=== PATIENT | female | born 1990 | race African-American/Black ===

== ENCOUNTER 2016-04-27 08:28 | Emergency (ER) | payer SELFPAY ==
[2016-04-27 08:49] VITALS: BP 128/86
--- NOTE | 2016-04-27 09:47 | RAD ---
HISTORY: Subacute trauma, right foot pain COMPARISONS: None VIEWS: 3, Frontal, lateral, and oblique views of the right foot FINDINGS: BONE DENSITY: Normal. BONES: There is fragmentation along the dorsal aspect of the navicular bone at the talonavicular articulation JOINTS: There is no arthropathy. ALIGNMENT: There is no dislocation. SOFT TISSUES: Unremarkable. OTHER FINDINGS: None. IMPRESSION: FRAGMENTATION OF THE NAVICULAR BONE AT THE TALONAVICULAR ARTICULATION DORSALLY WHICH MAY REFLECT A SUBACUTE AVULSION INJURY. RECOMMEND CORRELATION WITH SITE OF PAIN
--- NOTE | 2016-04-27 10:37 | UC ---
Lower Extremity/Ankle HPI - HPI Summary HPI Summary: ONE MONTH AGO FELL (AFTER PASSING OUT: CURRENTLY BEING WORKED UP BY PCP FOR SYNCOPAL EPISODE)AND TWISTED RIGHT FOOT/ANKLE. SINCE THE TIME OF INJURY RIGHT FOOT CONTINUES TO HURT AT TOP OF FOOT. - History of Current Complaint Chief Complaint: UCLowerExtremity Stated Complaint: FOOT INJURY Time Seen by Provider: 04/27/16 09:15 Hx Obtained From: Patient Hx Last Menstrual Period: 04/25/16 Onset/Duration: Sudden Onset, Lasting Days, Still Present Severity Initially: Mild Severity Currently: Mild Aggravating Factor(s): Standing, Ambulation, Other Alleviating Factor(s): Rest, Elevation Able to Bear Weight: Yes - Risk Factors Gout Risk Factors: Negative DVT Risk Factors: Negative Septic Arthritis Risk Factor: Negative - Allergies/Home Medications Allergies/Adverse Reactions: Allergies Allergy/AdvReac Type Severity Reaction Status Date / Time No Known Allergies Allergy Verified 04/27/16 08:50 PMH/Surg Hx/FS Hx/Imm Hx Previously Healthy: Yes Endocrine History Of: Denies: Diabetes, Thyroid Disease Cardiovascular History Of: Denies: Cardiac Disorders, Hypertension Respiratory History Of: Reports: Asthma - seasonal Denies: COPD GI/ History Of: Denies: Ulcer - Surgical History Surgical History: None - Family History Known Family History: Positive: None Negative: Cardiac Disease, Respiratory Disease, Other - JOINT LAXITY - Social History Occupation: Employed Full-time Lives: With Family Alcohol Use: Occasionally Substance Use Type: None Smoking Status (MU): Light Every Day Tobacco Smoker Type: Cigarettes Amount Used/How Often: 1/4 ppd Cessation Counseling: Patient Advised to Stop Review of Systems Constitutional: Negative Skin: Negative Eyes: Negative ENT: Negative Respiratory: Negative Cardiovascular: Negative Gastrointestinal: Negative Genitourinary: Negative Motor: Negative Neurovascular: Negative Musculoskeletal: Arthralgia, Myalgia Neurological: Negative Psychological: Negative All Other Systems Reviewed And Are Negative: Yes Physical Exam Triage Information Reviewed: Yes Appearance: Well-Appearing, No Pain Distress, Well-Nourished Vital Signs: Initial Vital Signs Temp 97.7 F 04/27/16 08:45 Pulse 78 04/27/16 08:45 Resp 20 04/27/16 08:45 BP 128/86 04/27/16 08:45 Pulse Ox 100 04/27/16 08:45 Vital Signs Reviewed: Yes Eye Exam: Normal ENT Exam: Normal ENT: Positive: Normal ENT inspection, Hearing grossly normal, Pharynx normal, TMs normal Dental Exam: Normal Neck exam: Normal Respiratory Exam: Normal Respiratory: Positive: Chest non-tender, Lungs clear, Normal breath sounds, No respiratory distress, No accessory muscle use Cardiovascular Exam: Normal Cardiovascular: Positive: RRR, No Murmur Abdominal Exam: Normal Abdomen Description: Positive: Nontender, No Organomegaly Musculoskeletal: Positive: Strength Intact, ROM Intact, Edema @ - RIGHT FOOT Neurological Exam: Normal Psychological Exam: Normal Skin Exam: Normal Lower Extremity Course/Dx - Differential Dx/Diagnosis Differential Diagnosis/HQI/PQRI: Sprain, Strain Provider Diagnoses: RIGHT NAVICULAR AVULSION FRACTURE. RIGHT FOOT SPRAIN Discharge - Discharge Plan Condition: Stable Disposition: HOME Patient Education Materials: Foot Sprain (ED), Avulsion Fracture (ED) Forms: *Work Release Referrals: Jesus Hernandez MD [Primary Care Provider] - Dante Bonilla MD [Medical Doctor] -
== END 2016-04-27 10:33 | disposition home or self-care (01) ==
LOC: UCEAST 08:28
DX: S92.251A Displaced fracture of navicular [scaphoid] of right foot, initial encounter for closed fracture (principal); S93.601A Unspecified sprain of right foot, initial encounter; X50.1XXA Overexertion from prolonged static or awkward postures, initial encounter; Y93.9 Activity, unspecified; Y92.9 Unspecified place or not applicable; F17.210 Nicotine dependence, cigarettes, uncomplicated
CPT/HCPCS: 99213; G0463

== ENCOUNTER 2017-10-11 16:45 | Emergency (ER) | payer BC ==
[2017-10-11 16:53] VITALS: BP 144/63
--- NOTE | 2017-10-11 17:11 | UC ---
Dizzy HPI HPI Summary: This patient is a 26 year old F presenting to [facility] [place] with a chief complaint of intermittent dizziness episodes since 10-09-17. The patient rates the pain 0/10 in severity. Pt took a nap that day and felt well enough to go to work. Patient reports nausea with dizziness. . Patient denies vomiting, ear pain, sinus pain, sore throat, dysuria, CP, SOB, and diarrhea. Pt does have some nasal congestion. Pt states sx worse with movement of head. No cp, sob, abd pain. Pt denies fevers, chills rash. 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 No symptoms at time of present. h/o vasovagal syncope - this feels different. LNMP was two weeks ago - "possible" Patients medication reviewed this visit. - History Of Current Complaint Chief Complaint: UCDizziness Stated Complaint: DIZZINESS Time Seen by Provider: 10/11/17 16:51 Hx Obtained From: Patient Hx Last Menstrual Period: 2 WEEKS AGO Onset/Duration: Still Present Timing: Intermittent Episode Lasting Severity Initially: Mild Severity Currently: None Pain Intensity: 0 Pain Scale Used: 0-10 Numeric Character: Dizzy Associated Signs And Symptoms: Positive: Negative - vomiting, ear pain sinus pain, sore throat, dysuria, diarrhea, - Allergies/Home Medications Allergies/Adverse Reactions: Allergies Allergy/AdvReac Type Severity Reaction Status Date / Time No Known Allergies Allergy Verified 04/27/16 08:50 PMH/Surg Hx/FS Hx/Imm Hx Previously Healthy: Yes Other History Of: Negative For: HIV, Anticoagulant Therapy - Surgical History Surgical History: None - Family History Known Family History: Positive: Cardiac Disease, Hypertension, Diabetes Negative: Respiratory Disease, Other - JOINT LAXITY - Social History Occupation: Employed Full-time Alcohol Use: Occasionally Substance Use Type: None Smoking Status (MU): Light Every Day Tobacco Smoker Type: Cigarettes Amount Used/How Often: 1/4 ppd Review of Systems Constitutional: Negative ENT: Other - nasal congestion Gastrointestinal: Nausea Neurological: Other - dizziness All Other Systems Reviewed And Are Negative: Yes Physical Exam - Summary Physical Exam Summary: Vital Signs Reviewed: Yes A+Ox3, no distress Eyes: Conjunctiva Clear, TATE. EOM intact and full + 4-5 beat horizontal nystagmus to the left pt with symptoms. no nystagmus to right or vertical ENT: Hearing grossly normal TM x 2 clear, turbinates inflammed and boggy mmoist , uvula midline, no exudate, no erythema Neck: Positive: Supple no bruits Respiratory: Positive: No respiratory distress, No accessory muscle use + CTA throughout no w/r Cardiovascular: RRR nl s1, s2 no m/r CBT <2 sec abd soft + BS nt/nd no guarding, no distension Musculoskeletal Exam: TAVERA x 4 without difficulty Strength Intact, ROM Intact Neurological: Positive: Alert, no difficulty with balance, ambulation Psychological: Positive: Normal Response To Family Skin: Positive: no rash, no ecchymosis Triage Information Reviewed: Yes Vital Signs: Initial Vital Signs Temp 97.4 F 10/11/17 16:48 Pulse 94 10/11/17 16:48 Resp 18 10/11/17 16:48 BP 144/63 10/11/17 16:48 Pulse Ox 100 10/11/17 16:48 Dizzy Course/Dx - Course Course Of Treatment: Blood pressure noted and patient informed to follow up with PCP. Patient presents with episodic episodes total of 3 since yesterday where she feels dizzy. Patient reports mild nausea with these episodes of dizziness. Patient is not having symptoms right now. On exam patient has extinguishing horizontal nystagmus to the left. Patient symptomatically this. Patient also goes to have some nasal congestion. Patient without any other findings on exam. Patient urine test negative. Discussed with patient symptoms. We'll prescribe meclizine, Flonase and recommended decongestant. Hydrate. Decreased significant. Patient given a work note for tonight. Recommend patient schedule follow-up with primary care provider. Discussed with patient return precautions. Patient comfortable in agreement with plan. - Differential Dx/Diagnosis Provider Diagnoses: vertigo. nausea Discharge - Sign-Out/Discharge Documenting (check all that apply): Patient Departure - Discharge Plan Condition: Stable Disposition: HOME Prescriptions: Fluticasone NASAL SPRAY 50MCG* [Flonase NASAL SPRAY 50MCG*] 2 spray BOTH NARES DAILY #1 btl Meclizine TAB* [Antivert 12.5 TAB*] 25 mg PO Q8HR PRN #15 tab PRN Reason: Dizziness Patient Education Materials: Vertigo (ED) Forms: *Work Release Referrals: Jesus Hernandez MD [Primary Care Provider] - Additional Instructions: - Stay well-hydrated. Drink plenty of nonalcoholic, non-caffeinated beverages - Get plenty of restful sleep - Use nasal spray as well as [id number] decongestant such as ClaritinD, Margoth-D, Zyrtec-D, or Sudafed to help with congestion - Okay to take medications prescribed for dizziness. - Work to decrease cigarettes smoke. - If you developed increased dizziness, chest pain, shortness of breath or any other concerns it is recommended you be re-evaluated. - slowly change position, lying to sitting, sitting to standing - Contact her doctor to schedule follow-up appointment this week. - Billing Disposition and Condition Condition: STABLE Disposition: Home Attestation Statement Scribe Attestation: This is alexa Dunn documenting for attending Mulu Bowers MD. User Type: Provider with Scribe Provider Attestation: The documentation recorded by the scribe accurately reflects the service I personally performed and the decisions made by me.
== END 2017-10-11 17:38 | disposition home or self-care (01) ==
LOC: UCEAST 16:45
DX: R42 Dizziness and giddiness (principal); R11.0 Nausea; F17.210 Nicotine dependence, cigarettes, uncomplicated
CPT/HCPCS: 81003; 84702; 99212; G0463

== ENCOUNTER 2018-12-29 13:32 | Emergency (ER) | payer SELFPAY ==
[2018-12-29 13:58] VITALS: BP 136/86
--- NOTE | 2018-12-29 14:05 | UC ---
Throat Pain/Nasal [place] HPI - HPI Summary HPI Summary: Pt presents with c/o with c/o "laryngitis" X 1 week. pt states that she has had URI like symptoms that began 7 days ago. Pt denies pever, chills. Pt has c/o PND and cough. - History of Current Complaint Chief Complaint: UCGeneralIllness Stated Complaint: COUGH NO VOICE Time Seen by Provider: 12/29/18 13:57 Hx Obtained From: Patient Hx Last Menstrual Period: 12/12/18 ?: No Onset/Duration: Sudden Onset, Lasting Days, Still Present Severity: Moderate Pain Intensity: 3 Cough: Nonproductive Associated Signs & Symptoms: Positive: Hoarseness, Nasal Discharge - Epiglottits Risk Factors Epiglottis Risk Factors: Negative - Allergies/Home Medications Allergies/Adverse Reactions: Allergies Allergy/AdvReac Type Severity Reaction Status Date / Time No Known Allergies Allergy Verified 12/29/18 13:58 PMH/Surg Hx/FS Hx/Imm Hx Previously Healthy: Yes Other History Of: Negative For: HIV, Anticoagulant Therapy - Surgical History Surgical History: None Surgery Procedure, Year, and Place: denies - Family History Known Family History: Positive: Cardiac Disease, Hypertension, Diabetes Negative: Respiratory Disease, Other - JOINT LAXITY - Social History Occupation: Employed Full-time Lives: With Family Alcohol Use: Occasionally Substance Use Type: None Smoking Status (MU): Light Every Day Tobacco Smoker Type: Cigarettes Amount Used/How Often: 1/4 ppd Have You Smoked in the Last Year: Yes Review of Systems All Other Systems Reviewed And Are Negative: Yes Constitutional: Positive: Negative Skin: Positive: Negative Eyes: Positive: Negative ENT: Positive: Sore Throat, Sinus Congestion Respiratory: Positive: Cough Cardiovascular: Positive: Negative Gastrointestinal: Positive: Negative Genitourinary: Positive: Negative Motor: Positive: Negative Neurovascular: Positive: Negative Musculoskeletal: Positive: Negative Neurological: Positive: Negative Psychological: Positive: Negative Is Patient Immunocompromised?: No Physical Exam Triage Information Reviewed: Yes Appearance: Well-Appearing Vital Signs: Initial Vital Signs Temp 98.1 F 12/29/18 13:55 Pulse 84 12/29/18 13:55 Resp 16 12/29/18 13:55 BP 136/86 12/29/18 13:55 Pulse Ox 98 12/29/18 13:55 Vital Signs Reviewed: Yes Eye Exam: Normal ENT: Positive: Nasal congestion, Hoarse voice Dental Exam: Normal Neck exam: Normal Respiratory: Positive: Normal breath sounds Cardiovascular Exam: Normal Musculoskeletal Exam: Normal Neurological Exam: Normal Psychological Exam: Normal Skin Exam: Normal Throat Pain/Nasal Course/Dx - Differential Dx/Diagnosis Differential Diagnosis/HQI/PQRI: Influenza, Pharyngitis, Tonsillitis, URI Provider Diagnosis: Laryngitis, Viral syndrome Discharge ED - Sign-Out/Discharge Documenting (check all that apply): Patient Departure All imaging exams completed and their final reports reviewed: No Studies - Discharge Plan Condition: Stable Disposition: HOME Prescriptions: Benzonatate CAP* [Tessalon 100 MG CAP*] 200 mg PO Q8H PRN #30 cap PRN Reason: Cough Guaifenesin/Pseudoephedrne HCl [Mucinex D ER 600-60 mg Tablet] 1 each PO Q12H # 10 tab.er.12h predniSONE TAB* [Deltasone 10 MG TAB*] 30 mg PO DAILY #12 tab Patient Education Materials: Laryngitis (ED) Forms: *Work Release Referrals: Jesus Hernandez MD [Primary Care Provider] - If Needed - Billing Disposition and Condition Condition: STABLE Disposition: Home
== END 2018-12-29 14:16 | disposition home or self-care (01) ==
LOC: UCEAST 13:32
DX: J04.0 Acute laryngitis (principal); B34.9 Viral infection, unspecified; R09.81 Nasal congestion; F17.210 Nicotine dependence, cigarettes, uncomplicated
CPT/HCPCS: 99212; G0463

== ENCOUNTER 2019-05-15 08:36 | Emergency (ER) | payer BC ==
[2019-05-15 08:52] VITALS: BP 135/95
--- NOTE | 2019-05-15 08:52 | UC ---
Knee Pain HPI - HPI Summary HPI Summary: 20-year-old woman comes in with chief complaint of left knee pain. 2 days ago she slipped and fell on the ice and injured her left knee. Is not sure if it was a direct strike on the ground or if the twisting cause the pain. Worst pain is in the anterior lateral aspect of the knee. No clicking or popping. Pain is worse with weightbearing and flexion extension. She has been taking ibuprofen which does help with the pain. Occasionally the knee feels unstable. - History of Current Complaint Stated Complaint: KNEE PAIN Time Seen by Provider: 05/15/19 08:42 Hx Last Menstrual Period: 12/12/18 - Allergies/Home Medications Allergies/Adverse Reactions: Allergies Allergy/AdvReac Type Severity Reaction Status Date / Time No Known Allergies Allergy Verified 05/15/19 08:54 Home Medications: Home Medications Albuterol HFA INHALER* [Ventolin HFA Inhaler*] 2 puff INH Q4H PRN 05/15/19 [ History Confirmed 05/15/19] Ibuprofen TAB* [Advil TAB*] 200 mg PO Q6H PRN 05/15/19 [History Confirmed ] PMH/Surg Hx/FS Hx/Imm Hx Previously Healthy: Yes Other History Of: Negative For: HIV, Anticoagulant Therapy - Surgical History Surgical History: None Surgery Procedure, Year, and Place: denies - Family History Known Family History: Positive: Cardiac Disease, Hypertension, Diabetes Negative: Respiratory Disease, Other - JOINT LAXITY - Social History Alcohol Use: Occasionally Substance Use Type: None Smoking Status (MU): Light Every Day Tobacco Smoker Type: Cigarettes Amount Used/How Often: 1/4 ppd Have You Smoked in the Last Year: Yes Review of Systems All Other Systems Reviewed And Are Negative: Yes Constitutional: Positive: Negative Skin: Positive: Negative Eyes: Positive: Negative ENT: Positive: Negative Respiratory: Positive: Negative Cardiovascular: Positive: Negative Gastrointestinal: Positive: Negative Motor: Positive: Negative Neurovascular: Positive: Negative Musculoskeletal: Positive: Other: - see hpi Neurological/Mental Status: Positive: Negative Psychological: Positive: Negative Is Patient Immunocompromised?: No Physical Exam Triage Information Reviewed: Yes Appearance: Well-Appearing, No Pain Distress, Well-Nourished Vital Signs Reviewed: Yes Eye Exam: Normal Eyes: Positive: Conjunctiva Clear Neck: Positive: Supple Respiratory: Positive: No respiratory distress Musculoskeletal: Positive: Other: - Left knee is tender to palpation in the anterior aspect just distal to the patella over the patella tibial tendon and the proximal tibia. Minimal tenderness on the lateral aspect of the knee. Positive lateral Gilberto's. Negative medial Gilberto's. Stable to exam. Neurological: Positive: Alert Psychological: Positive: Age Appropriate Behavior Skin Exam: Normal Knee Pain Course/Dx - Course Course Of Treatment: Optical Manufacturing Technician: Huong Cameron S, ([id number]) Bilingual Teacher Aide: VASILIY (VASILIY) Report Date: 05/15/2019 09:20:00 Report Status: Final Start of Report Content Patient Name: CHUCK TRINIDAD Medical Record#: [id number] Ordering Physician: Avelino Gallegos MD Acct.#: [id number] : Age: 28 Sex: F Location: [facility] Exam Date: 05/15/19846 ADM Status: REG ER Order Information: KNEE LEFT 4+ VWS Accession Number: [id number] CPT: 69588 Indication: Left knee pain. 4 views of the left knee demonstrates no fracture or dislocation. No other bone or joint abnormality is identified. IMPRESSION: No fracture of the left knee is noted. No joint effusion is noted. <Electronically signed by Huong Cameron MD in OV> 05/15/19914 Dictated By: Huong Cameron MD Dictated Date/Time: 05/15/19907 Transcribed Date/Time: 05/15/19907 Copy to: CC:Jesus Hernandez MD; Avelino Gallegos MD Imaging - [facility] Care Imaging - [facility] [address] [address] ph [phone]) ph ([phone]) ph ([phone]) End of Report Content I discussed the knee x-rays with the patient. Rodolfo wrap was placed by nursing here in clinic patient and her vascular intact after placement of the Rodolfo wrap. Patient will to weightbearing as tolerated. Patient reports she has Crutches at home that she will use if necessary. Going to ice it and use anti- inflammatories and follow-up with sports medicine orthopedics. - Differential Dx/Diagnosis Provider Diagnosis: Left knee pain Discharge ED - Sign-Out/Discharge Documenting (check all that apply): Patient Departure All imaging exams completed and their final reports reviewed: Yes - Discharge Plan Condition: Stable Disposition: HOME Patient Education Materials: Knee Pain (ED) Forms: *Work Release Referrals: Jesus Hernandez MD [Primary Care Provider] - Additional Instructions: FOLLOW UP WITH SPORTS MEDICINE OR ORTHOPEDICS. GET REEVALUATED SOONER IF NOT IMPROVED OR WORSE OR ANY QUESTIONS OR CONCERNS. - Billing Disposition and Condition Condition: STABLE Disposition: Home
== END 2019-05-15 09:44 | disposition home or self-care (01) ==
LOC: UCEAST 08:36
DX: M25.562 Pain in left knee (principal); F17.210 Nicotine dependence, cigarettes, uncomplicated; W00.0XXA Fall on same level due to ice and snow, initial encounter; Y92.9 Unspecified place or not applicable
CPT/HCPCS: 99211; G0463